=== PATIENT | male | born 1950 | race Caucasian/White ===

== ENCOUNTER 2017-11-28 08:41 | Day surgery (SDC) | payer MEDICARE ==
--- NOTE | 2017-11-25 13:29 | HP ---
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 ANTICIPATED PROCEDURE: Excision. HISTORY OF PRESENT ILLNESS: Ultrasound positive. Seen and examined. Procedure discussed in detail and wished to proceed PAST MEDICAL HISTORY: ALLERGIES: NONE. MEDICATIONS: Norvasc. PAST SURGICAL HISTORY: Skin lesions removed. SOCIAL HISTORY: Negative. FAMILY HISTORY: Negative. REVIEW OF SYSTEMS: Hypertension controlled. PHYSICAL EXAMINATION: VITAL SIGNS: Normal. CHEST: Clear. COR: Regular. ABDOMEN: No palpable organomegaly or mass. IMPRESSION: Skin cancer of the scalp. PLAN: Excision.
[~2017-11-28 08:41] MED LIST: Lactated Ringers 0 ML IV ONE; Lactated Ringers 1,000 ML IV ONE; Lactated Ringers 1,000 ML IV SCH; MINERAL OIL LIGHT 10 ML FOR SURGERY ONE; Sensorcaine 0.25% 10 ML ONE
[2017-11-28] MEDS ORDERED: VERSED 5 MG/5 ML IV ONE (08:42)
[2017-11-28] MEDS ORDERED: DEMEROL 50 MG SDV IV ONE (08:42)
[2017-11-28 09:30] VITALS: PULSE 60
[2017-11-28] MEDS ORDERED: Xopenex 1.25 MG/0.5 ML UD NEBULE IH ONE ×3 (09:39→10:10)
[2017-11-28] MEDS ORDERED: BACIGUENT 30 GM ONE (11:15)
[2017-11-28 12:46] VITALS: BP 96/55; O2SAT 94
--- NOTE | 2017-11-29 08:21 | OP ---
SURGERY DATE/TIME: 11/28/2017 1052 PREOPERATIVE DIAGNOSIS: Skin cancer probably squamous of the scalp 2 cm. POSTOPERATIVE DIAGNOSIS: Skin cancer probably squamous of the scalp 2 cm. PROCEDURES: 1) Excision with 2 cm circular skin cancer on the scalp. 2) Harvesting 4 sq/cm of split thickness skin graft. 3) Application of 4 sq/cm of split thickness skin graft. 4) Supervision of 30 minutes of monitored IV sedation. SURGEON: Patrick Zimmerman M.D. ANESTHESIA: IV sedation monitored. COMPLICATIONS: None. CONDITION: Stable. INDICATION: A patient requiring removal of a biopsy-proven squamous cell of scalp. DESCRIPTION OF PROCEDURE: Taken to surgery. Routine prep and drape. Time out performed. A circular incision was marked with 0.5 mm to 1 mm free zone. It was incised. 0.25% Marcaine IV sedation. IV sedation was monitored. Oximetry kept over 90%. Comfort level satisfactory. Hemostasis obtained with electrocautery. Split thickness skin graft 4 sq/cm was harvested from the thigh. It was then applied with sutures #4-0 Prolene. Sterile ointment applied. Sterile dressing applied. The patient tolerated the procedure satisfactorily.
== END 2017-11-28 13:05 | disposition home or self-care (01) ==
LOC: SDC 08:41
PROVIDERS: ATTEND Surgery
PROC: 0HR0X74 Replacement of Scalp Skin with Autologous Tissue Substitute, Partial Thickness, External Approach (ICD-10-PCS; principal; 2017-11-28)
PROC: 0HBHXZZ Excision of Right Upper Leg Skin, External Approach (ICD-10-PCS; 2017-11-28)
DX: C44.42 Squamous cell carcinoma of skin of scalp and neck (principal); I10 Essential (primary) hypertension; Z79.01 Long term (current) use of anticoagulants
CPT/HCPCS: 94640; J2175; J2250; A9270-GY

== ENCOUNTER 2023-12-03 12:02 | Emergency (ER) | payer MEDICARE ==
--- NOTE | 2023-12-03 12:18 | ERPHSYRPT ---
- History of Present Illness Time Seen by Provider: 12/03/23 12:18 Source: patient Exam Limitations: no limitations Physician History: Patient 73-year-old male with a history of dementia, CHF COPD [place] presents to our ED for evaluation of a sensation of being hit on the head. Patient denies any head trauma. There is no evidence of head trauma. This sensation began last night. No neck pain. Cervical spine cleared clinically. Patient denies chest pain no shortness of breath. No nausea vomiting or diaphoresis. Patient is conversant well-appearing. He has no other complaints. Portions of this note were created with voice recognition technology. There may be grammatical, spelling, punctuation or sound alike errors Timing/Duration: yesterday Severity: moderate Modifying Factors: Improves With: nothing Associated Symptoms: denies symptoms Allergies/Adverse Reactions: iodine Allergy (Intermediate, Verified 08/10/19 14:11) shellfish derived Allergy (Verified 08/10/19 14:11) Home Medications: Citalopram Hydrobromide 20 mg* [ceLEXa 20 MG] 20 mg PO DAILY 09/16/15 [History] Atorvastatin Calcium [Lipitor] 80 mg PO DAILY 06/26/16 [History] Memantine HCl [Namenda] 10 mg PO BID 06/26/16 [History] Sacubitril/Valsartan [Entresto 49 mg-51 mg Tablet] 1 each PO DAILY 06/26/16 [History] Albuterol Sulfate [Ventolin Hfa] 2 puffs IH BID PRN PRN 11/19/17 [History] Rivastigmine 9.5 mg TD DAILY 11/19/17 [History] Spironolactone 25 mg [Aldactone 25 MG] 12.5 mg PO DAILY 11/19/17 [History] Furosemide 40 mg PO TID 10/14/18 [History] carvediloL [Carvedilol] 6.25 mg PO BID 10/14/18 [History] Apixaban [Eliquis] 5 mg PO BID 12/03/23 [History] Doxycycline Hyclate 100 mg [Vibramycin 100 MG] 100 mg PO BID 12/03/23 [History] Hx Tetanus, Diphtheria Vaccination/Date Given: No Hx Influenza Vaccination/Date Given: No Hx Pneumococcal Vaccination/Date Given: No - Review of Systems Constitutional: No Symptoms, No Fever, No Chills Eyes: No Symptoms Ears, Nose, & Throat: No Symptoms Respiratory: No Symptoms, No Cough, No Dyspnea Cardiac: No Symptoms, No Chest Pain, No Edema, No Syncope Abdominal/Gastrointestinal: No Symptoms, No Abdominal Pain, No Nausea, No Vomiting, No Diarrhea Genitourinary Symptoms: No Symptoms, No Dysuria Musculoskeletal: No Symptoms, No Back Pain, No Neck Pain Skin: No Symptoms, No Rash Neurological: No Symptoms, No Dizziness, No Focal Weakness, No Sensory Changes Psychological: No Symptoms Endocrine: No Symptoms Hematologic/Lymphatic: No Symptoms Immunological/Allergic: No Symptoms All Other Systems: Reviewed and Negative - Past Medical History Pertinent Past Medical History: Yes Neurological History: Dementia, TIA ENT History: No Pertinent History Cardiac History: Congestive Heart Failure, Myocardial Infarction ([place]), Other Respiratory History: CHF, COPD Endocrine Medical History: No Pertinent History Musculoskeletal History: Osteoarthritis GI Medical History: GERD History: No Pertinent History Psycho-Social History: Depression Male Reproductive Disorders: No Pertinent History Other Medical History: MOST RECENT [place] 12/25/18 WT PACEMAKER/DE-FIB PLACEMENT. WEARING OXYGEN AT NIGHT. HX OF TIA CAUSING LEFT FACIAL DROOP. HX OF DEMENTIA WITH PATIENT REPORTING SHORT-TERM/RECENT MEMORY DIFFICULTIES. DOESN'T DRIVE ANY MORE DUE TO NOT BEING ABLE TO REMEMBER AT TIMES WHERE HE WAS GOING. ON THIS DATE PATIENT ALERT, ORIENTED X4, AND FOLLOWS COMMANDS WITHOUT DIFFICULTY. ONCE DURING SESSION PATIENT PAUSED AFTER COMMAND TO STAND AND WHEN ASKED WHAT WAS WRONG HE STARED OFF THEN SAID "I DON'T KNOW". 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 - Past Surgical History Past Surgical History: Yes Neuro Surgical History: No Pertinent History Cardiac: Cardiac Stent, Cardiac Catheterization Respiratory: No Pertinent History Gastrointestinal: Appendectomy, Hernia Repair Genitourinary: No Pertinent History Musculoskeletal: No Pertinent History Male Surgical History: No Pertinent History Other Surgical History: pt states he has dementia - Social History Smoking Status: Former smoker Exposure to second hand smoke: No Drug Use: none Patient Lives Alone: No - Nursing Vital Signs Nursing Vital Signs: Initial Vital Signs Temperature 98.4 F 12/03/23 12:02 Pulse Rate 84 12/03/23 12:02 Respiratory Rate 22 12/03/23 12:02 Blood Pressure 118/66 12/03/23 12:02 O2 Sat by Pulse Oximetry 98 02/27/24 12:02 Pain Scale Pain Intensity 4 - Physical Exam General Appearance: no apparent distress, alert Eye Exam: PERRL/EOMI, eyes nml inspection Ears, Nose, Throat Exam: normal ENT inspection, TMs normal, pharynx normal, moist mucous membranes Neck Exam: normal inspection, non-tender, supple, full range of motion Respiratory Exam: normal breath sounds, lungs clear, airway intact, No respiratory distress Cardiovascular Exam: regular rate/rhythm, normal heart sounds, normal peripheral pulses Gastrointestinal/Abdomen Exam: soft, normal bowel sounds, No tenderness, No mass Back Exam: normal inspection, normal range of motion, No CVA tenderness, No vertebral tenderness Extremity Exam: normal inspection, normal range of motion, pelvis stable Neurologic Exam: alert, oriented x 3, cooperative, normal mood/affect, nml cerebellar function, nml station & gait, sensation nml, No motor deficits Skin Exam: normal color, warm, dry, No rash Lymphatic Exam: No adenopathy SpO2 Interpretation: normal SpO2: 98 O2 Delivery: Room Air - Course Nursing assessment & vital signs reviewed: Yes EKG Interpreted by Me: RATE (79), Sinus Rhythm, NORMAL AXIS, NORMAL INTERVALS - CT Exams Head CT Interpretation: Tele-radiologist Report (Nonacute senile brain with remote right internal capsule lacunar infarct) Ordered Tests: Active Orders 24 hr Category Date Time Status Supervisor [place] STAT Care 12/03/23 12:16 Active EKG-ER Only STAT Care 12/03/23 12:13 Active IV Insertion STAT Care 12/03/23 12:13 Active Pulse Oximetry (ED) STAT Care 12/03/23 12:13 Active HEAD WITHOUT CONTRAST [CT] Stat Exams 12/03/23 12:08 Completed CBC W DIFF Stat Lab 12/03/23 12:10 Completed CMP Stat Lab 12/03/23 12:10 Completed MAG [MAGNESIUM] Stat Lab 12/03/23 15:40 Completed TROPONIN Q4H Lab 12/03/23 12:10 Completed TROPONIN Q4H Lab 12/03/23 15:40 Received TROPONIN Q4H Lab 12/03/23 20:30 Ordered UA W/RFX UR CULTURE Stat Lab 12/03/23 12:20 Completed Medication Summary Generic Name Dose Route Start Last Admin Trade Name Freq PRN Reason Stop Dose Admin Amiodarone HCl/Dextrose 360 mg in 200 mls @ 33 mls/hr 12/03/23 16:00 12/03/23 15:54 Nexterone 360 Mg/200 Ml Bag IV 01/02/24 15:59 33 mls/hr .Q6H4M ADALBERTO 33 mls/hr Administration Protocol Discontinued Medications Generic Name Dose Route Start Last Admin Trade Name Pawanq PRN Reason Stop Dose Admin Aspirin 324 mg 12/03/23 13:24 12/03/23 13:27 Aspirin 81 Mg Tab.Chew PO 12/03/23 13:25 324 mg STAT ONE Administration Aspirin Confirm 12/03/23 13:27 Aspirin 81 Mg Tab.Chew Administered 12/03/23 13:28 Dose 324 mg .ROUTE .STK-MED ONE Amiodarone HCl/Dextrose Confirm 12/03/23 15:43 Nexterone 360 Mg/200 Ml Bag Administered 12/03/23 15:44 Dose 360 mg in 200 mls @ ud IV .STK-MED ONE Amiodarone HCl 150 mg/ 103 mls @ 618 mls/hr 12/03/23 15:52 12/03/23 15:55 Dextrose IV 12/03/23 16:01 618 mls/hr STAT ONE Administration Protocol Lab/Rad Data: Laboratory Result Diagrams 12/03/23 12:10 12/03/23 12:10 Laboratory Results 12/03/23 12/03/23 12/03/23 Range/Units 15:40 12:20 12:10 WBC (4.0-10.5) x10^3/uL RBC (4.1-5.6) x10^6/uL Hgb (12.5-18.0) g/dL Hct (42-50) % MCV (78-100) fL MCH (26-32) pg MCHC (32-36) g/dL RDW (11.5-14.0) % Plt Count (150-450) x10^3/uL MPV (7.5-11.0) fL Gran % (36.0-66.0) % Immature Gran % (Auto) (0.00-0.4) % Nucleat RBC Rel Count (0.00-0.1) % Eos # (Auto) (0-0.5) x10^3/uL Immature Gran # (Auto) (0.00-0.03) x10^3u/L Absolute Lymphs (auto) (1.0-4.6) x10^3/uL Absolute Monos (auto) (0.0-1.3) x10^3/uL Absolute Nucleated RBC (0.00-0.01) x10^3u/L Lymphocytes % (24.0-44.0) % Monocytes % (0.0-12.0) % Eosinophils % (0.00-5.0) % Basophils % (0.0-0.4) % Absolute Granulocytes (1.4-6.9) x10^3/uL Basophils # (0-0.4) x10^3/uL Sodium (137-145) mmol/L Potassium (3.5-5.1) mmol/L Chloride (98-107) mmol/L Carbon Dioxide (22-30) mmol/L Anion Gap (5-15) MEQ/L BUN (9-20) mg/dL Creatinine (0.66-1.25) mg/dL Estimated GFR ML/MIN Glucose (74-106) mg/dL Calcium (8.4-10.2) mg/dL Magnesium 2.2 (1.6-2.3) mg/dL Total Bilirubin (0.2-1.3) mg/dL AST (17-59) U/L ALT (0-50) U/L Alkaline Phosphatase (38-126) U/L Troponin I 0.721 H* (0.000-0.034) ng/mL Serum Total Protein (6.3-8.2) g/dL Albumin (3.5-5.0) g/dL Urine Color Dark Yellow (Yellow) Urine Appearance Clear (Clear) Urine pH 5.5 (4.6-8.0) Ur Specific [place] 1.025 (1.005-1.030) Urine Protein Negative (Negative) Urine Glucose (UA) Negative (Negative) mg/dL Urine Ketones Negative (Negative) Urine Blood Negative (Negative) Urine Nitrite Negative (Negative) Urine Bilirubin Small A (Negative) Urine Urobilinogen 1.0 A (0.2) mg/dL Ur Leukocyte Esterase Negative (Negative) U Hyaline Cast (Auto) None Seen (0-2) /LPF Urine Microscopic RBC 0-2 (0-5) /HPF Urine Microscopic WBC 0-2 (0-5) /HPF Ur Epithelial Cells Rare (None Seen) /HPF Urine Bacteria Rare A (None Seen) /HPF Urine Culture Reflexed NO (NO) 12/03/23 12/03/23 Range/Units 12:10 12:10 WBC 7.7 (4.0-10.5) x10^3/uL RBC 5.08 (4.1-5.6) x10^6/uL Hgb 16.5 (12.5-18.0) g/dL Hct 49.2 (42-50) % MCV 96.9 (78-100) fL MCH 32.5 H (26-32) pg MCHC 33.5 (32-36) g/dL RDW 12.3 (11.5-14.0) % Plt Count 261 (150-450) x10^3/uL MPV 10.1 (7.5-11.0) fL Gran % 67.9 H (36.0-66.0) % Immature Gran % (Auto) 0.5 H (0.00-0.4) % Nucleat RBC Rel Count 0.0 (0.00-0.1) % Eos # (Auto) 0.14 (0-0.5) x10^3/uL Immature Gran # (Auto) 0.04 H (0.00-0.03) x10^3u/L Absolute Lymphs (auto) 1.78 (1.0-4.6) x10^3/uL Absolute Monos (auto) 0.46 (0.0-1.3) x10^3/uL Absolute Nucleated RBC 0.00 (0.00-0.01) x10^3u/L Lymphocytes % 23.3 L (24.0-44.0) % Monocytes % 6.0 (0.0-12.0) % Eosinophils % 1.8 (0.00-5.0) % Basophils % 0.5 (0.0-0.4) % Absolute Granulocytes 5.19 (1.4-6.9) x10^3/uL Basophils # 0.04 (0-0.4) x10^3/uL Sodium 138 (137-145) mmol/L Potassium 3.7 (3.5-5.1) mmol/L Chloride 103 (98-107) mmol/L Carbon Dioxide 27 (22-30) mmol/L Anion Gap 12.3 (5-15) MEQ/L BUN 33 H (9-20) mg/dL Creatinine 0.88 (0.66-1.25) mg/dL Estimated GFR 91.4 ML/MIN Glucose 201 H (74-106) mg/dL Calcium 8.6 (8.4-10.2) mg/dL Magnesium (1.6-2.3) mg/dL Total Bilirubin 1.20 (0.2-1.3) mg/dL AST 26 (17-59) U/L ALT 32 (0-50) U/L Alkaline Phosphatase 80 (38-126) U/L Troponin I (0.000-0.034) ng/mL Serum Total Protein 6.8 (6.3-8.2) g/dL Albumin 3.8 (3.5-5.0) g/dL Urine Color (Yellow) Urine Appearance (Clear) Urine pH (4.6-8.0) Ur Specific [place] (1.005-1.030) Urine Protein (Negative) Urine Glucose (UA) (Negative) mg/dL Urine Ketones (Negative) Urine Blood (Negative) Urine Nitrite (Negative) Urine Bilirubin (Negative) Urine Urobilinogen (0.2) mg/dL Ur Leukocyte Esterase (Negative) U Hyaline Cast (Auto) (0-2) /LPF Urine Microscopic RBC (0-5) /HPF Urine Microscopic WBC (0-5) /HPF Ur Epithelial Cells (None Seen) /HPF Urine Bacteria (None Seen) /HPF Urine Culture Reflexed (NO) - Progress Progress: improved Progress Note: Vancomycin infusing however it appears a volume has infiltrated patient's left upper extremity. Infusion discontinued. We contacted pharmacy who advised Hylenex ministration of 1 mL. We administered 0.2 mL subcutaneously at 5 different locations near the site of infiltration. Patient tolerated procedure well. Patient is involved extremities neurovascular intact distally compartment s are soft cap refill less than 2 seconds. Patient's left upper extremity is elevated. It appears the swelling is subsiding. Patient's pain is improving. He voices no complaints at this time. 12/03/23 14:00 Patient accepted by at 2:50 PM. We are awaiting call from hospitalist from hospital 12/03/23 14:50 Spoke to hospitalist at 2:54 PM. Hospitalist accepts transfer to [facility]. 12/03/23 14:55 We observed a run of V. tach at 3:16 PM. At that moment patient complained of head pain. The same head pain that brought him to our hospital today. 12/03/23 15:17 73-year-old male presents to our ED for evaluation of headache. Patient observed to be in and out of V. tach. Amiodarone initiated. Troponin elevated at 0.7 patient accepted to [facility]. Patient agrees to transfer to [facility] for further evaluation and treatment. Complexity problem addressed is moderate acute complicated Patient developed V. tach in our ED. Amiodarone initiated. Critical care time is 1 hour. Immediate action required to prevent further deterioration. Complex of data reviewed and analyzed is extensive. Test ordered test reviewed for results analyzed and correlated clinically with history physical examination. Management discussed with software build engineer and hospitalist. See above for details Risk complication and a risk morbidity/mortality patient management is high. Patient requires hospitalization/higher level of care for further evaluation and treatment. Vital stable. Time spent to transfer patient is approximately 30 minutes. Plan of care established for shared decision making. No social determinants of health present impede follow-up. Portions of this note were created with voice recognition technology. There may be grammatical, spelling, punctuation or sound alike errors 12/03/23 16:23 Counseled pt/family regarding: lab results, diagnosis - Departure Departure Disposition: Home Clinical Impression: NSTEMI (non-ST elevated myocardial infarction), V-tach, ACS (acute coronary syndrome) Condition: Stable Critical Care Time: Yes Critical Care Time(excluding separately billable procedures): Critical 30-74 mins Referrals: ISAI NORMAN DO [Primary Care Provider] - Follow up/PCP as directed
[2023-12-03 12:23] LABS: Absolute Neutrophil Ct (ANC) 5.19 x10^3/uL (1.4-6.9); BASOPHIL % 0.5 % (0.0-0.4); Basophil (Absolute #) 0.04 x10^3/uL (0-0.4); Eosinophil % 1.8 % (0.00-5.0); Eosinophil (Absolute #) 0.14 x10^3/uL (0-0.5); Hematocrit 49.2 % (42-50); Hemoglobin 16.5 g/dL (12.5-18.0); IMMATURE GRAN # 0.04 x10^3u/L (0.00-0.03); IMMATURE GRAN % 0.5 % (0.00-0.4); Lymphocyte (Absolute #) 1.78 x10^3/uL (1.0-4.6); Lymphocytes % 23.3 % (24.0-44.0); Mean Cell Volume 96.9 fL (78-100); Mean Corpuscular Hemoglobin 32.5 pg (26-32); Mean Corpuscular Hgb Concent. 33.5 g/dL (32-36); Mean Platelet Volume 10.1 fL (7.5-11.0); Monocyte (Absolute #) 0.46 x10^3/uL (0.0-1.3); Neutrophil % 67.9 % (36.0-66.0); Platelet Count 261 x10^3/uL (150-450); Red Blood Count 5.08 x10^6/uL (4.1-5.6); Red Cell Distribution Width 12.3 % (11.5-14.0); White Blood Count 7.7 x10^3/uL (4.0-10.5)
[2023-12-03 12:36] VITALS: TEMP 98.4
[2023-12-03 12:39] LABS: ALBUMIN 3.8 g/dL (3.5-5.0); ANION GAP 12.3 MEQ/L (5-15); BILIRUBIN,TOTAL 1.2 mg/dL (0.2-1.3); Calcium 8.6 mg/dL (8.4-10.2); Creatinine 1 0.88 mg/dL (0.66-1.25); EST GLOMERULAR FILTRATION RATE 91.4 ML/MIN; Potassium 3.7 mmol/L (3.5-5.1); Total Protein 6.8 g/dL (6.3-8.2)
--- NOTE | 2023-12-03 12:39 | XRAY ---
Indication: Headache. Intracranial hemorrhage. Multiple contiguous axial images obtained through the head without contrast. Comparison: None Age-appropriate global atrophy, moderate periventricular degenerative micro-ischemia bilaterally, and remote lacunar infarct right internal capsule. No acute intracranial hemorrhage, abnormal extra-axial fluid collection, mass effect or fourth ventricle is midline without hydrocephalus. Bony calvarium intact. Visualized paranasal sinuses and mastoid air cells are clear. Impression: Nonacute senile brain with remote lacunar infarct right internal capsule.
[2023-12-03 13:06] LABS: Appearance Clear (Clear); Bilirubin Small (Negative); Blood Negative (Negative); Glucose, Urine Negative (Negative); Ketones Negative (Negative); Leukocyte Esterase Negative (Negative); Nitrite Negative (Negative); Ph 5.5 (4.6-8.0); Protein,Urine Dip Negative (Negative); RBC 0-2 /HPF (0-5); Specific Gravity 1.025 (1.005-1.030); WBC 0-2 /HPF (0-5)
[2023-12-03 13:07] LABS: ADD URINE CULTURE? NO (NO); Bacteria Rare /HPF (None Seen); Epithelial Cells Rare /HPF (None Seen); Hyaline Casts None Seen /LPF (0-2)
[2023-12-03] MEDS: BABY ASPIRIN 81 MG CHEW PO ONE (13:27)
[2023-12-03] MEDS ORDERED: BABY ASPIRIN 81 MG CHEW ONE (13:27)
[2023-12-03 15:04] VITALS: BP 98/61
[2023-12-03] MEDS ORDERED: NEXTERONE 360 MG/200 ML BAG 360 MG/200 ML PLAST..BAG IV ONE (15:43)
[2023-12-03] MEDS: NEXTERONE 360 MG/200 ML BAG 360 MG/200 ML PLAST..BAG IV SCH (15:54)
[2023-12-03] MEDS: Cordarone 150 MG/3 ML Injection*** 150 MG in D5w 100ML Mini Bag 100 ML 100 ML IV ONE (15:55)
[2023-12-03 16:07] VITALS: PULSE 60; RESP 16
[2023-12-03 16:26] VITALS: O2SAT 98
== END 2023-12-03 16:44 | disposition short-term general hospital (02) ==
LOC: ED 12:02
DX: I21.4 Non-ST elevation (NSTEMI) myocardial infarction (principal); I24.9 Acute ischemic heart disease, unspecified; I47.20 Ventricular tachycardia, unspecified; R51.9 Headache, unspecified; I50.9 Heart failure, unspecified; Z79.01 Long term (current) use of anticoagulants; Z79.899 Other long term (current) drug therapy
CPT/HCPCS: 36000; 36415; 70450; 80053; 81001; 83735; 84484; 85025; 93005; 93041; 94760; 99285; 99291; J0282; A9270-GY

== ENCOUNTER 2024-02-10 23:49 | Emergency (ER) | payer MEDICARE ==
[~2024-02-10 23:49] MED LIST changes: -Lactated Ringers 0 ML IV ONE; -Lactated Ringers 1,000 ML IV ONE; -Lactated Ringers 1,000 ML IV SCH; -MINERAL OIL LIGHT 10 ML FOR SURGERY ONE; +NOREPINEPHRINE 8 MG/250 ML-D5W 8 MG/250 ML PLAST..BAG IV ONE; -Sensorcaine 0.25% 10 ML ONE
[2024-02-10] MEDS ORDERED: Zemuron 100 MG/10 ML IV ONE (23:50)
[2024-02-10] MEDS ORDERED: Cordarone 150 MG/3 ML Injection IV ONE ×2 (23:50)
[2024-02-10] MEDS ORDERED: SODIUM BICARBONATE 50 MEQ/50 ML ABBOJECT IV ONE (23:50)
[2024-02-10] MEDS ORDERED: VERSED 5 MG/5 ML IV ONE (23:50)
[2024-02-10] MEDS ORDERED: Versed 50 MG/ 10 Ml MDV*** 50 MG in Sodium Chloride 0.9% 250 ML 250 ML IV ONE (23:50)
[2024-02-10] MEDS ORDERED: EPINEPHRINE ABBOJECT 1 MG/10 ML IV ONE (23:50)
[2024-02-10] MEDS ORDERED: NARCAN 2 MG/2 ML IV ONE (23:50)
[2024-02-10] MEDS ORDERED: Sodium Chloride 0.9% 250 ML 250 ML IV ONE (23:52)
[2024-02-10] MEDS ORDERED: Versed 50 MG/ 10 Ml MDV ONE (23:52)
--- NOTE | 2024-02-10 23:57 | ERPHSYRPT ---
- History of Present Illness Source: family, old records Exam Limitations: clinical condition Timing/Duration: today Activities at Onset: none Chest Pain Radiation: no radiation Severity of Pain-Max: none Severity of Pain-Current: none Modifying Factors: Improves With: nothing Nitro Today/Relief: no nitro taken today Aspirin Treatment Today: no aspirin today Associated Symptoms: other (Patient unresponsive) Hx Tetanus, Diphtheria Vaccination/Date Given: No Hx Influenza Vaccination/Date Given: No Hx Pneumococcal Vaccination/Date Given: No <LUIS M DE LA CRUZ - Last Filed: 02/11/24 06:48> <MANINDER KOHLI - Last Filed: 02/11/24 14:05> - History of Present Illness Time Seen by Provider: 02/10/24 23:50 Physician History: This is a 73-year-old white male patient who was brought to the emergency department in respiratory distress by his brother. Patient was having difficulty breathing at home, walks slowly to the car and in the car, and route to the emergency department the patient collapsed and was not responsive. In [facility] emergency department room he had agonal breathing. Patient was pulseless. Immediately, the patient was placed on the monitor which showed the patient was in PEA. We began compressions and then applied the Kapil device. Patient was rapidly orotracheally intubated by respiratory therapy under my direction. Additional, independent history was provided by the patient's brother because the patient was unresponsive. Patient has multiple medical issues including CHF, dementia, oxygen dependent COPD, coronary artery disease with cardiac stents and pacemaker/defibrillator in place. Patient's brother stated that the defibrillator is nonfunctional because of some problems with wiring. Patient has a history of hyperlipidemia, hypertension, TIA and gastroesophageal reflux disease. He is taking Eliquis. I reviewed [facility] records (LUIS M DE LA CRUZ) Allergies/Adverse Reactions: iodine Allergy (Severe, Verified 02/11/24 00:20) Anaphylactic Reaction shellfish derived Allergy (Severe, Verified 02/11/24 00:20) Anaphylactic Reaction Home Medications: Citalopram Hydrobromide 20 mg* [ceLEXa 20 MG] 20 mg PO DAILY 09/16/15 [History] Atorvastatin Calcium [Lipitor] 80 mg PO DAILY 06/26/16 [History] Memantine HCl [Namenda] 10 mg PO BID 06/26/16 [History] Sacubitril/Valsartan [Entresto 49 mg-51 mg Tablet] 1 each PO DAILY 06/26/16 [History] Albuterol Sulfate [Ventolin Hfa] 2 puffs IH BID PRN PRN 11/19/17 [History] Rivastigmine 9.5 mg TD DAILY 11/19/17 [History] Spironolactone 25 mg [Aldactone 25 MG] 12.5 mg PO DAILY 11/19/17 [History] Furosemide 40 mg PO TID 10/14/18 [History] carvediloL [Carvedilol] 6.25 mg PO BID 10/14/18 [History] Apixaban [Eliquis] 5 mg PO BID 12/03/23 [History] Doxycycline Hyclate 100 mg [Vibramycin 100 MG] 100 mg PO BID 12/03/23 [History] Travel Risk - International Travel Have you traveled outside of the country in past 3 weeks: No - Emerging Infectious Disease Are you exhibiting symptoms associated with any current EIDs: No <LUIS M DE LA CRUZ - Last Filed: 02/11/24 06:48> - Review of Systems Constitutional: Other (Patient unresponsive) Eyes: Other (Patient unresponsive) Ears, Nose, & Throat: Other (Patient unresponsive) Respiratory: Dyspnea, Other (Patient with agonal breathing shortness of breath symptoms) Cardiac: Other (No palpable pulse) Abdominal/Gastrointestinal: No Symptoms Genitourinary Symptoms: No Symptoms Musculoskeletal: No Symptoms Skin: No Symptoms Neurological: No Symptoms Psychological: No Symptoms Endocrine: No Symptoms Hematologic/Lymphatic: No Symptoms Immunological/Allergic: No Symptoms All Other Systems: Reviewed and Negative <LUIS M DE LA CRUZ - Last Filed: 02/11/24 06:48> - Past Medical History Pertinent Past Medical History: Yes Neurological History: Dementia, TIA ENT History: No Pertinent History Cardiac History: Congestive Heart Failure, Myocardial Infarction ([place]), Other Respiratory History: CHF, COPD Endocrine Medical History: No Pertinent History Musculoskeletal History: Osteoarthritis GI Medical History: GERD History: No Pertinent History Psycho-Social History: Depression Male Reproductive Disorders: No Pertinent History Other Medical History: MOST RECENT NE 12/25/18 WT PACEMAKER/DE-FIB PLACEMENT. WEARING OXYGEN AT NIGHT. HX OF TIA CAUSING LEFT FACIAL DROOP. HX OF DEMENTIA WITH PATIENT REPORTING SHORT-TERM/RECENT MEMORY DIFFICULTIES. DOESN'T DRIVE ANY MORE DUE TO NOT BEING ABLE TO REMEMBER AT TIMES WHERE HE WAS GOING. ON THIS DATE PATIENT ALERT, ORIENTED X4, AND FOLLOWS COMMANDS WITHOUT DIFFICULTY. ONCE DURING SESSION PATIENT PAUSED AFTER COMMAND TO STAND AND WHEN ASKED WHAT WAS WRONG HE STARED OFF THEN SAID "I DON'T KNOW". 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 - Past Surgical History Past Surgical History: Yes Neuro Surgical History: No Pertinent History Cardiac: Cardiac Stent, Cardiac Catheterization Respiratory: No Pertinent History Gastrointestinal: Appendectomy, Hernia Repair Genitourinary: No Pertinent History Musculoskeletal: No Pertinent History Male Surgical History: No Pertinent History Other Surgical History: pt states he has dementia - Social History Smoking Status: Former smoker Exposure to second hand smoke: No Drug Use: none Patient Lives Alone: No <LUIS M DE LA CRUZ - Last Filed: 02/11/24 06:48> - Physical Exam General Appearance: severe distress, lethargy, other (Unresponsive) Eye Exam: eyes nml inspection Ears, Nose, Throat Exam: dry mucous membranes Neck Exam: normal inspection, non-tender, full range of motion Respiratory Exam: respiratory distress, diminished breath sounds, No chest tenderness Cardiovascular Exam: other (No palpable pulse) Gastrointestinal/Abdomen Exam: soft, normal bowel sounds, No tenderness Rectal Exam: not done Back Exam: normal inspection, No CVA tenderness Extremity Exam: normal inspection, normal range of motion, pelvis stable Neurologic Exam: other (Patient unresponsive) Skin Exam: pale, other (Cool skin) Lymphatic Exam: No adenopathy SpO2 Interpretation: hypoxic, ABG ordered, O2 applied, airway management i nt. <LUIS M DE LA CRUZ - Last Filed: 02/11/24 06:48> - Nursing Vital Signs Nursing Vital Signs: Initial Vital Signs Temperature 93.1 F 02/10/24 23:49 Pulse Rate 66 02/10/24 23:49 Blood Pressure 86/52 02/10/24 23:49 Pain Scale Pain Intensity 0 - Course Nursing assessment & vital signs reviewed: Yes EKG Interpreted by Me: RATE (60), Other (Nondiagnostic twelve-lead EKG. Magnet in place to turn off the pacemaker.) <LUIS M DE LA CRUZ - Last Filed: 02/11/24 06:48> - CT Exams Head CT Interpretation: Tele-radiologist Report (Grossly stable nonacute senile brain with remote lacunar infarct) <MANINDER KOHLI - Last Filed: 02/11/24 14:05> Ordered Tests: Active Orders 24 hr Category Date Time Status CHEST 1 VIEW (PORTABLE) Stat Exams 02/11/24 00:11 Completed HEAD WITHOUT CONTRAST [CT] Stat Exams 02/11/24 11:57 Completed ABG [ARTERIAL BLOOD GASES] ASORD Lab 02/10/24 23:35 Results ABG [ARTERIAL BLOOD GASES] Stat Lab 02/11/24 01:26 Results ABG [ARTERIAL BLOOD GASES] Stat Lab 02/11/24 10:45 Completed CBC W DIFF Stat Lab 02/10/24 23:45 Completed CBC W DIFF Stat Lab 02/11/24 05:20 Completed CMP Stat Lab 02/10/24 23:45 Completed CMP Stat Lab 02/11/24 05:20 Completed CULTURE,URINE Stat Lab 02/11/24 00:01 Received D-DIMER QUANTITATIVE Stat Lab 02/10/24 23:45 Completed MAGNESIUM Stat Lab 02/10/24 23:45 Completed MAGNESIUM Stat Lab 02/11/24 05:20 Completed Manual Differential NC Stat Lab 02/10/24 23:45 Completed PROTIME WITH INR Stat Lab 02/10/24 23:45 Completed PTT Stat Lab 02/10/24 23:45 Completed TROPONIN Q4H Lab 02/11/24 05:20 Completed TROPONIN Q4H Lab 02/11/24 09:20 Completed TROPONIN Q4H Lab 02/11/24 14:30 Ordered TROPONIN Q4H Lab 02/11/24 18:30 Ordered TROPONIN Q4H Lab 02/11/24 22:30 Ordered TROPONIN Stat Lab 02/10/24 23:45 Completed Intubate Patient STAT RT 02/10/24 23:20 Completed Ventilator Management Q4H RT 02/11/24 01:44 Active Medication Summary Generic Name Dose Route Start Last Admin Trade Name Freq PRN Reason Stop Dose Admin Sodium Chloride 1,000 mls @ 100 mls/hr 02/11/24 05:15 02/11/24 06:53 Sodium Chloride 0.9% 1000 Ml IV 03/12/24 05:14 100 mls/hr .Q10H ADALBERTO Administration Propofol 100 mls @ 2.457 mls/hr 02/11/24 09:20 05/07/24 10:02 Propofol 1000 Mg/100 Ml Bottle IV 03/12/24 09:19 5 mcg/kg/min .Q24H PRN 2.457 mls/hr SEDATION FOR VENT Titration Protocol 5 MCG/KG/MIN Discontinued Medications Generic Name Dose Route Start Last Admin Trade Name Freq PRN Reason Stop Dose Admin Amiodarone HCl 300 mg 02/10/24 23:50 Amiodarone Hcl 150 Mg/3 Ml Vial IV 02/10/24 23:51 .STK-MED ONE Amiodarone HCl 150 mg 02/10/24 23:50 Amiodarone Hcl 150 Mg/3 Ml Vial IV 02/10/24 23:51 .STK-MED ONE Epinephrine HCl 1 mg 02/10/24 23:50 Epinephrine 1 Mg/10 Ml Abbj 0.1 Mg/Ml Syr IV 02/10/24 23:51 .STK-MED ONE Furosemide 40 mg 02/11/24 06:23 02/11/24 06:42 Furosemide 40 Mg/4 Ml Vial IV 02/11/24 06:24 40 mg STAT ONE Administration Furosemide Confirm 02/11/24 06:37 Furosemide 40 Mg/4 Ml Vial Administered 02/11/24 06:38 Dose 40 mg .ROUTE .STK-MED ONE Heparin Sodium (Beef Lung) 5,000 unit 02/11/24 00:22 02/11/24 00:27 Heparin 5000 Units/0.5 Ml 5,000 Unit/0.5 Ml Syr IV 02/11/24 00:23 5,000 unit STAT ONE Administration Heparin Sodium (Beef Lung) Confirm 02/11/24 00:23 Heparin 5000 Units/0.5 Ml 5,000 Unit/0.5 Ml Syr Administered 02/11/24 00:24 Dose 5,000 unit .ROUTE .STK-MED ONE Hydromorphone HCl 1 mg 02/11/24 09:33 02/11/24 09:54 Hydromorphone 1 Mg/1ml Inj IV 02/11/24 09:34 1 mg STAT ONE Administration Hydromorphone HCl Confirm 02/11/24 09:49 Hydromorphone 1 Mg/1ml Inj Administered 02/11/24 09:50 Dose 1 mg .ROUTE .STK-MED ONE Hydromorphone HCl 1 mg 02/11/24 12:09 02/11/24 12:15 Hydromorphone 1 Mg/1ml Inj IV 02/11/24 12:10 1 mg STAT ONE Administration Hydromorphone HCl Confirm 02/11/24 12:10 Hydromorphone 1 Mg/1ml Inj Administered 02/11/24 12:11 Dose 1 mg .ROUTE .STK-MED ONE Sodium Chloride Confirm 02/11/24 01:01 Sodium Chloride 0.9% Administered 02/11/24 01:02 Dose 100 mls @ ud .ROUTE .STK-MED ONE Ceftriaxone Sodium 1 gm in 100 mls @ 200 mls/hr 02/11/24 06:22 02/11/24 07:44 Rocephin 1 Gm / 100 Ml Nacl IV 02/11/24 06:51 Infused STAT ONE Infusion Ceftriaxone Sodium Confirm 02/11/24 06:37 Rocephin 1 Gm / 100 Ml Nacl Administered 02/11/24 06:38 Dose 1 gm in 100 mls @ ud IV .STK-MED ONE Sodium Chloride Confirm 02/10/24 23:52 Sodium Chloride 0.9% 250 Ml Administered 02/10/24 23:53 Dose 250 mls @ ud IV .STK-MED ONE Norepinephrine/Dextrose Confirm 02/10/24 23:45 Norepinephrine 8 Mg/250 Ml-D5w Administered 02/10/24 23:46 Dose 8 mg in 250 mls @ ud IV .STK-MED ONE Propofol Confirm 02/11/24 09:12 Propofol 1000 Mg/100 Ml Bottle Administered 02/11/24 09:13 Dose 100 mls @ ud IV .STK-MED ONE Magnesium Sulfate Confirm 02/11/24 01:01 Magnesium Sulfate Injection Administered 02/11/24 01:02 Dose 2 gm .ROUTE .STK-MED ONE Midazolam HCl Confirm 02/10/24 23:52 Midazolam Hcl 50 Mg/10 Ml Vial Administered 02/10/24 23:53 Dose 50 mg .ROUTE .STK-MED ONE Naloxone HCl 2 mg 02/10/24 23:50 Naloxone Hcl 2mg/2 Ml 2 Mg/2 Ml Syr IV 02/10/24 23:51 .STK-MED ONE Propofol 10 mg 02/11/24 09:32 02/11/24 09:37 Propofol 10 Mg/Ml 20ml Vial IV 02/11/24 09:33 10 mg STAT ONE Administration Rocuronium [place] 50 mg 02/10/24 23:50 Rocuronium [place] 100 Mg/10ml Vial IV 02/10/24 23:51 .STK-MED ONE Sodium Bicarbonate 50 meq 02/10/24 23:50 Sodium Bicarbonate 1 Meq/Ml 50ml Syringe IV 02/10/24 23:51 .STK-MED ONE Lab/Rad Data: Laboratory Result Diagrams 02/11/24 05:20 02/11/24 05:20 Laboratory Results 02/11/24 02/11/24 02/11/24 Range/Units 10:45 09:20 05:20 WBC (4.0-10.5) x10^3/uL RBC (4.1-5.6) x10^6/uL Hgb (12.5-18.0) g/dL Hct (42-50) % MCV (78-100) fL MCH (26-32) pg MCHC (32-36) g/dL RDW (11.5-14.0) % Plt Count (150-450) x10^3/uL MPV (7.5-11.0) fL Gran % (36.0-66.0) % Immature Gran % (Auto) (0.00-0.4) % Nucleat RBC Rel Count (0.00-0.1) % Eos # (Auto) (0-0.5) x10^3/uL Immature Gran # (Auto) (0.00-0.03) x10^3u/L Absolute Lymphs (auto) (1.0-4.6) x10^3/uL Absolute Monos (auto) (0.0-1.3) x10^3/uL Absolute Nucleated RBC (0.00-0.01) x10^3u/L Lymphocytes % (24.0-44.0) % Monocytes % (0.0-12.0) % Eosinophils % (0.00-5.0) % Basophils % (0.0-0.4) % Absolute Granulocytes (1.4-6.9) x10^3/uL Segmented Neutrophils (36.-66.) % Lymphocytes (Manual) (24-44) % Monocytes (Manual) (0.0-12.0) % Basophils # (0-0.4) x10^3/uL Platelet Estimate (NORMAL) RBC Morphology PT (9.4-12.5) SECONDS INR (0.8-3.0) APTT (25.1-36.5) SECONDS D-Dimer (0.0-0.50) mg/L Puncture Site RIGHT RADIAL pCO2 37 (35-45) mmHg pO2 294 H* (75-100) mmHg Base Excess 6.2 H (-2.0-2.0) O2 Saturation 97.5 (94-100) g/dF ABG pH 7.51 H (7.35-7.45) ABG HCO3 29.5 H* (22-28) ABG O2 Sat (Measured) 100.0 (95-100) % Joel Test YES A-a Gradient 373 a/A Ratio 0.44 Hemoglobin 13.8 Carboxyhemoglobin 1.1 (0.0-6.9) % THgb Methemoglobin 1.4 (1.4-1.5) % Potassium 3.9 (3.5-5.1) Temperature 37.0 C POC O2 Flow Rate 100 % Sodium (135-145) mmol/L Chloride (98-107) mmol/L Carbon Dioxide (22-30) mmol/L Anion Gap (5-15) MEQ/L BUN (9-20) mg/dL Creatinine (0.66-1.25) mg/dL Estimated GFR ML/MIN Glucose (74-106) mg/dL Calcium (8.4-10.2) mg/dL Magnesium (1.6-2.3) mg/dL Total Bilirubin (0.2-1.3) mg/dL AST (17-59) U/L ALT (0-50) U/L Alkaline Phosphatase (38-126) U/L Troponin I 1.740 H* 1.450 H* (0.000-0.033) ng/mL Serum Total Protein (6.3-8.2) g/dL Albumin (3.5-5.0) g/dL Urine Color (Yellow) Urine Appearance (Clear) Urine pH (4.6-8.0) Ur Specific [place] (1.005-1.030) Urine Protein (Negative) Urine Glucose (UA) (Negative) mg/dL Urine Ketones (Negative) Urine Blood (Negative) Urine Nitrite (Negative) Urine Bilirubin (Negative) Urine Urobilinogen (0.2) mg/dL Ur Leukocyte Esterase (Negative) Urine Microscopic RBC (0-5) /HPF Urine Microscopic WBC (0-5) /HPF Ur Epithelial Cells (None Seen) /HPF Urine Bacteria (None Seen) /HPF Slides for Path Review 02/11/24 02/11/24 02/11/24 Range/Units 05:20 05:20 01:26 WBC 15.1 H (4.0-10.5) x10^3/uL RBC 4.12 (4.1-5.6) x10^6/uL Hgb 13.9 (12.5-18.0) g/dL Hct 41.5 L (42-50) % MCV 100.7 H D (78-100) fL MCH 33.7 H (26-32) pg MCHC 33.5 (32-36) g/dL RDW 13.7 (11.5-14.0) % Plt Count 211 (150-450) x10^3/uL MPV 10.3 (7.5-11.0) fL Gran % 88.6 H (36.0-66.0) % Immature Gran % (Auto) 0.7 H (0.00-0.4) % Nucleat RBC Rel Count 0.0 (0.00-0.1) % Eos # (Auto) 0.01 (0-0.5) x10^3/uL Immature Gran # (Auto) 0.11 H (0.00-0.03) x10^3u/L Absolute Lymphs (auto) 0.46 L (1.0-4.6) x10^3/uL Absolute Monos (auto) 1.12 (0.0-1.3) x10^3/uL Absolute Nucleated RBC 0.00 (0.00-0.01) x10^3u/L Lymphocytes % 3.1 L (24.0-44.0) % Monocytes % 7.4 (0.0-12.0) % Eosinophils % 0.1 (0.00-5.0) % Basophils % 0.1 (0.0-0.4) % Absolute Granulocytes 13.35 H (1.4-6.9) x10^3/uL Segmented Neutrophils (36.-66.) % Lymphocytes (Manual) (24-44) % Monocytes (Manual) (0.0-12.0) % Basophils # 0.02 (0-0.4) x10^3/uL Platelet Estimate (NORMAL) RBC Morphology PT (9.4-12.5) SECONDS INR (0.8-3.0) APTT (25.1-36.5) SECONDS D-Dimer (0.0-0.50) mg/L Puncture Site Pending pCO2 53 H (35-45) mmHg pO2 152 H* (75-100) mmHg Base Excess -3.3 L (-2.0-2.0) O2 Saturation 97.4 (94-100) g/dF ABG pH 7.27 L (7.35-7.45) ABG HCO3 24.3 (22-28) ABG O2 Sat (Measured) 99.9 (95-100) % Joel Test Pending A-a Gradient 495 a/A Ratio 0.23 Hemoglobin 14.1 Carboxyhemoglobin 1.3 (0.0-6.9) % THgb Methemoglobin 1.2 L (1.4-1.5) % Potassium 3.6 3.6 (3.5-5.1) Temperature 37.0 C POC O2 Flow Rate 100 % Sodium 143 (135-145) mmol/L Chloride 108 H (98-107) mmol/L Carbon Dioxide 27 (22-30) mmol/L Anion Gap 10.6 (5-15) MEQ/L BUN 21 H (9-20) mg/dL Creatinine 1.12 (0.66-1.25) mg/dL Estimated GFR 69.8 ML/MIN Glucose 166 H (74-106) mg/dL Calcium 8.5 (8.4-10.2) mg/dL Magnesium 2.7 H (1.6-2.3) mg/dL Total Bilirubin 1.20 (0.2-1.3) mg/dL AST 80 H (17-59) U/L ALT 45 (0-50) U/L Alkaline Phosphatase 87 (38-126) U/L Troponin I (0.000-0.033) ng/mL Serum Total Protein 6.3 (6.3-8.2) g/dL Albumin 3.5 (3.5-5.0) g/dL Urine Color (Yellow) Urine Appearance (Clear) Urine pH (4.6-8.0) Ur Specific [place] (1.005-1.030) Urine Protein (Negative) Urine Glucose (UA) (Negative) mg/dL Urine Ketones (Negative) Urine Blood (Negative) Urine Nitrite (Negative) Urine Bilirubin (Negative) Urine Urobilinogen (0.2) mg/dL Ur Leukocyte Esterase (Negative) Urine Microscopic RBC (0-5) /HPF Urine Microscopic WBC (0-5) /HPF Ur Epithelial Cells (None Seen) /HPF Urine Bacteria (None Seen) /HPF Slides for Path Review YES 02/10/24 02/10/24 02/10/24 Range/Units 23:45 23:45 23:45 WBC 11.8 H (4.0-10.5) x10^3/uL RBC 4.13 (4.1-5.6) x10^6/uL Hgb 13.7 (12.5-18.0) g/dL Hct 45.0 (42-50) % MCV 109.0 H (78-100) fL MCH 33.2 H (26-32) pg MCHC 30.4 L (32-36) g/dL RDW 13.6 (11.5-14.0) % Plt Count 241 (150-450) x10^3/uL MPV 10.7 (7.5-11.0) fL Gran % (36.0-66.0) % Immature Gran % (Auto) (0.00-0.4) % Nucleat RBC Rel Count (0.00-0.1) % Eos # (Auto) (0-0.5) x10^3/uL Immature Gran # (Auto) (0.00-0.03) x10^3u/L Absolute Lymphs (auto) (1.0-4.6) x10^3/uL Absolute Monos (auto) (0.0-1.3) x10^3/uL Absolute Nucleated RBC (0.00-0.01) x10^3u/L Lymphocytes % (24.0-44.0) % Monocytes % (0.0-12.0) % Eosinophils % (0.00-5.0) % Basophils % (0.0-0.4) % Absolute Granulocytes (1.4-6.9) x10^3/uL Segmented Neutrophils 37 (36.-66.) % Lymphocytes (Manual) 60 H (24-44) % Monocytes (Manual) 3 (0.0-12.0) % Basophils # (0-0.4) x10^3/uL Platelet Estimate NORMAL (NORMAL) RBC Morphology NORMAL PT 12.0 (9.4-12.5) SECONDS INR 1.11 (0.8-3.0) APTT 23.5 L (25.1-36.5) SECONDS D-Dimer 2.15 H* (0.0-0.50) mg/L Puncture Site pCO2 (35-45) mmHg pO2 (75-100) mmHg Base Excess (-2.0-2.0) O2 Saturation (94-100) g/dF ABG pH (7.35-7.45) ABG HCO3 (22-28) ABG O2 Sat (Measured) (95-100) % Joel Test A-a Gradient a/A Ratio Hemoglobin Carboxyhemoglobin (0.0-6.9) % THgb Methemoglobin (1.4-1.5) % Potassium (3.5-5.1) Temperature C POC O2 Flow Rate % Sodium (135-145) mmol/L Chloride (98-107) mmol/L Carbon Dioxide (22-30) mmol/L Anion Gap (5-15) MEQ/L BUN (9-20) mg/dL Creatinine (0.66-1.25) mg/dL Estimated GFR ML/MIN Glucose (74-106) mg/dL Calcium (8.4-10.2) mg/dL Magnesium (1.6-2.3) mg/dL Total Bilirubin (0.2-1.3) mg/dL AST (17-59) U/L ALT (0-50) U/L Alkaline Phosphatase (38-126) U/L Troponin I (0.000-0.033) ng/mL Serum Total Protein (6.3-8.2) g/dL Albumin (3.5-5.0) g/dL Urine Color Dark Yellow (Yellow) Urine Appearance Turbid A (Clear) Urine pH 5.5 (4.6-8.0) Ur Specific [place] 1.025 (1.005-1.030) Urine Protein 100 A (Negative) Urine Glucose (UA) Negative (Negative) mg/dL Urine Ketones Trace A (Negative) Urine Blood Moderate A (Negative) Urine Nitrite Negative (Negative) Urine Bilirubin Negative (Negative) Urine Urobilinogen 1.0 A (0.2) mg/dL Ur Leukocyte Esterase Trace A (Negative) Urine Microscopic RBC 21-50 A (0-5) /HPF Urine Microscopic WBC 11-20 A (0-5) /HPF Ur Epithelial Cells None Seen (None Seen) /HPF Urine Bacteria Few A (None Seen) /HPF Slides for Path Review 02/10/24 02/10/24 Range/Units 23:45 23:35 WBC (4.0-10.5) x10^3/uL RBC (4.1-5.6) x10^6/uL Hgb (12.5-18.0) g/dL Hct (42-50) % MCV (78-100) fL MCH (26-32) pg MCHC (32-36) g/dL RDW (11.5-14.0) % Plt Count (150-450) x10^3/uL MPV (7.5-11.0) fL Gran % (36.0-66.0) % Immature Gran % (Auto) (0.00-0.4) % Nucleat RBC Rel Count (0.00-0.1) % Eos # (Auto) (0-0.5) x10^3/uL Immature Gran # (Auto) (0.00-0.03) x10^3u/L Absolute Lymphs (auto) (1.0-4.6) x10^3/uL Absolute Monos (auto) (0.0-1.3) x10^3/uL Absolute Nucleated RBC (0.00-0.01) x10^3u/L Lymphocytes % (24.0-44.0) % Monocytes % (0.0-12.0) % Eosinophils % (0.00-5.0) % Basophils % (0.0-0.4) % Absolute Granulocytes (1.4-6.9) x10^3/uL Segmented Neutrophils (36.-66.) % Lymphocytes (Manual) (24-44) % Monocytes (Manual) (0.0-12.0) % Basophils # (0-0.4) x10^3/uL Platelet Estimate (NORMAL) RBC Morphology PT (9.4-12.5) SECONDS INR (0.8-3.0) APTT (25.1-36.5) SECONDS D-Dimer (0.0-0.50) mg/L Puncture Site Pending pCO2 78 H* (35-45) mmHg pO2 168 H* (75-100) mmHg Base Excess -18.6 L (-2.0-2.0) O2 Saturation 98.1 (94-100) g/dF ABG pH 6.90 L* (7.35-7.45) ABG HCO3 15.3 L* (22-28) ABG O2 Sat (Measured) 100.0 (95-100) % Joel Test Pending A-a Gradient 448 a/A Ratio 0.27 Hemoglobin 13.2 Carboxyhemoglobin 1.3 (0.0-6.9) % THgb Methemoglobin 0.6 L (1.4-1.5) % Potassium 3.3 L 2.9 L* (3.5-5.1) Temperature 37.0 C POC O2 Flow Rate 100 % Sodium 143 (135-145) mmol/L Chloride 105 (98-107) mmol/L Carbon Dioxide 21 L (22-30) mmol/L Anion Gap 21.5 H (5-15) MEQ/L BUN 15 (9-20) mg/dL Creatinine 1.08 (0.66-1.25) mg/dL Estimated GFR 72.9 ML/MIN Glucose 249 H (74-106) mg/dL Calcium 9.0 (8.4-10.2) mg/dL Magnesium 2.4 H (1.6-2.3) mg/dL Total Bilirubin 0.80 (0.2-1.3) mg/dL AST 17 (17-59) U/L ALT 16 (0-50) U/L Alkaline Phosphatase 89 (38-126) U/L Troponin I 0.033 (0.000-0.033) ng/mL Serum Total Protein 6.7 (6.3-8.2) g/dL Albumin 3.8 (3.5-5.0) g/dL Urine Color (Yellow) Urine Appearance (Clear) Urine pH (4.6-8.0) Ur Specific [place] (1.005-1.030) Urine Protein (Negative) Urine Glucose (UA) (Negative) mg/dL Urine Ketones (Negative) Urine Blood (Negative) Urine Nitrite (Negative) Urine Bilirubin (Negative) Urine Urobilinogen (0.2) mg/dL Ur Leukocyte Esterase (Negative) Urine Microscopic RBC (0-5) /HPF Urine Microscopic WBC (0-5) /HPF Ur Epithelial Cells (None Seen) /HPF Urine Bacteria (None Seen) /HPF Slides for Path Review - Progress Progress: improved Air Movement: fair Blood Culture(s) Obtained: No Antibiotics given: No Counseled pt/family regarding: lab results, diagnosis, rad results <LUIS M DE LA CRUZ - Last Filed: 02/11/24 06:48> <MANINDER KOHLI - Last Filed: 02/11/24 14:05> - Progress Progress Note: 02/11/24 00:07 My medical decision making and the assignment of high complexity to this patien t's medical issue today is based on the patient's acute emergent presentation, review of the patient's past medical history, review the patient's medication list, review of patient drug allergy list, history present illness and physical findings on examination. This patient is in cardiac arrest. Intervention is code arrest protocol. See the separate sheet. I think this patient initially had respiratory distress, then respiratory arrest which then led to cardiac arrest. I interpreted the patient's laboratory data results. Patient has hyperglycemia he has a low potassium of 3.3. His initial troponin is normal with a level of 0.033 patient's hemoglobin was 13.7. I reviewed the blood gases pH is 6.9 a pCO2 of 78, pO2 of 168. The lactic acid is greater than 17 with a base excess of -18.6. We are providing the patient with an additional amp of bicarb. We are also starting him on Levophed. I had a discussion with the patient's brother. Apparently 3 siblings have medical power of photographic specialist. Initially, the brother stated that 1 sister had medical power of photographic specialist then he thought about it and apparently all 3 have medical power of photographic specialist. This will be discussed in determined by the paperwork that they have. After several rounds of code arrest interventions, spontaneous pulse returned. Unclear at this point what the patient's neurologic status is. 02/11/24 00:13 I interpreted the patient's postintubation chest x-ray. The ET tube is within the trachea above the nessa. There are bilateral infiltrates versus fluid versus both. 02/11/24 00:16 Repeat twelve-lead EKG was interpreted by me. It was performed on 02/11/2024 at 12:15 AM heart rate is 78. There is prolonged NE interval. The computer list probable anterior infarction, recent. 02/11/24 00:46 I had a long discussion with the family including the patient's medical power of photographic specialist. The patient has a niece who is a physician and she was also present during the discussion. I reviewed with them the patient's presenting picture, physical findings, workup results, and results of our management. I think the prognosis is poor in this patient. I told them I certainly cannot predict the future. They are very well aware of this patient's poor medical condition prior to this event. They have decided, including the medical power of photographic specialist, to make this patient DO NOT RESUSCITATE. We will follow the guidelines in weaning this patient off the ventilator and also call the organ donation system before the patient is weaned off the ventilator. The medical power of photographic specialist, the nurse and myself signed the DO NOT RESUSCITATE form. 02/11/24 06:23 This patient is now somewhat stabilized on normal saline IV fluid, Levophed drip, Versed drip. Organ donation network have evaluated this patient and the family at this time does want to donate organs. Therefore, we need to continue maintaining the patient's vital signs as close to normal as possible. There is still a need to determine the patient's brain activity. This requires specialized CT scan and/or special EEG with specialist able to interpret the test results. Therefore, in order to do that we need to transfer this patient to a facility that has the services. The organ donation network states that they do not have any particular facility they are aware of or use frequently in order to focus our communication attempts for transfer. The family is aware of this possibly prolonged process. They wish to start at [facility] ([facility]). We will continue to attempt to transfer this patient to other facilities if [facility] declines. The other difficult issue is to figure out how to transport to the accepting hospital. 02/11/24 06:48 As of now, we are waiting [facility] to call us back to determine if this is a possibility of transfer for determining level of brain activity. If they are unable to contact us back in the next 10 minutes I will be transferring care to Dr. Maninder Kohli at shift change. He will make final disposition. (LUIS M DE LA CRUZ) At approximately 9 AM patient began to bite his ET tube. We discontinue the Versed and initiated propofol and administered Dilaudid for pain control. Discussed with family and POA. Family requesting transfer to higher level of service for further evaluation and treatment. They prefer facility where [facility]'s radiologic technician has staff privileges. We are contacting [facility] currently for transfer 02/11/24 10:[address] Zain Clifford 2nd pressman at [facility] who is requesting CT head prior to transfer CT head ordered results pending. 02/11/24 11:58 CT negative for acute intracranial pathology. Senile brain with remote lacunar infarct. Dr. Clifford accepts transfer at 1:27 PM 02/11/24 13:27 Portions of this note were created with voice recognition technology. There may be grammatical, spelling, punctuation or sound alike errors 02/11/24 14:04 (MANINDER KOHLI) Medical Desision Making - Independent Historian Additional History obtained from: Family - External Record(s) Reviewed Records reviewed as a part of evaluation & management: Inpatient - Diagnostic Testing Diagnostic test were ordered, analyzed, and reviewed by me: Yes Radiological Interpretation: Interpreted by me - Risk of complications The pt has a high risk of morbidity or mortality based on: Decision not to resucitate <LUIS M DE LA CRUZ - Last Filed: 02/11/24 06:48> - Departure Departure Disposition: Transfer Critical Care Time: Yes <LUIS M DE LA CRUZ - Last Filed: 02/11/24 06:48> <MANINDER KOHLI - Last Filed: 02/11/24 14:05> - Departure Clinical Impression: Respiratory arrest before cardiac arrest, Cardiac arrest, Bilateral pulmonary infiltrates on chest x-ray, Pulmonary edema Condition: Critical Referrals: ISAI NORMAN, [Primary Care Provider] - Follow up/PCP as directed
[2024-02-11 00:15] LABS: Hemoglobin 13.7 g/dL (12.5-18.0); Mean Corpuscular Hemoglobin 33.2 pg (26-32); Mean Corpuscular Hgb Concent. 30.4 g/dL (32-36); Mean Platelet Volume 10.7 fL (7.5-11.0); Platelet Count 241 x10^3/uL (150-450); Red Blood Count 4.13 x10^6/uL (4.1-5.6); Red Cell Distribution Width 13.6 % (11.5-14.0); White Blood Count 11.8 x10^3/uL (4.0-10.5)
[2024-02-11 00:17] LABS: D-DIMER QUANTITATIVE 2.15 mg/L (0.0-0.50)
[2024-02-11 00:18] LABS: ALBUMIN 3.8 g/dL (3.5-5.0); ANION GAP 21.5 MEQ/L (5-15); BILIRUBIN,TOTAL 0.8 mg/dL (0.2-1.3); Creatinine 1 1.08 mg/dL (0.66-1.25); EST GLOMERULAR FILTRATION RATE 72.9 ML/MIN; MAGNESIUM 2.4 mg/dL (1.6-2.3); Potassium 3.3 mmol/L (3.5-5.1); TROPONIN 0.033 ng/mL (0.000-0.033); Total Protein 6.7 g/dL (6.3-8.2)
[2024-02-11] MEDS ORDERED: HEPARIN 5000 UNITS/0.5 ML (HIGH RISK MED) ONE (00:23)
[2024-02-11] MEDS: HEPARIN 5000 UNITS/0.5 ML (HIGH RISK MED) IV ONE (00:27)
[2024-02-11 00:34] LABS: Lymphocytes 60 % (24-44); Monocyte 3 % (0.0-12.0); Neutrophils 37 % (36.-66.); Total Cells Counted 100
[2024-02-11 00:35] LABS: Platelet Estimate NORMAL (NORMAL)
[2024-02-11 00:43] LABS: INR 1.11 (0.8-3.0); PTT 23.5 SECONDS (25.1-36.5)
[2024-02-11] MEDS ORDERED: Sodium Chloride 0.9% 100 ML ONE (01:01)
[2024-02-11] MEDS ORDERED: Magnesium Sulfate 1 GM/2 ML VIAL ONE (01:01)
[2024-02-11 01:19] LABS: Appearance Turbid (Clear); Bilirubin Negative (Negative); Blood Moderate (Negative); Glucose, Urine Negative (Negative); Ketones Trace (Negative); Leukocyte Esterase Trace (Negative); Nitrite Negative (Negative); Ph 5.5 (4.6-8.0); Protein,Urine Dip 100 (Negative); RBC 21-50 /HPF (0-5); Specific Gravity 1.025 (1.005-1.030)
[2024-02-11 01:20] LABS: Bacteria Few /HPF (None Seen); Epithelial Cells None Seen /HPF (None Seen)
[2024-02-11 01:27] LABS: A-aADO2 495; ABG HEMOGLOBIN 14.1; ABG POTASSIUM 3.6 (3.5-5.1); ARTERIAL BLD GAS O2 SATURATION 99.9 % (95-100); ARTERIAL BLOOD GAS BASE EXCESS -3.3 (-2.0-2.0); ARTERIAL BLOOD GAS FIO2 100 %; ARTERIAL BLOOD GAS PCO2 53 mmHg (35-45); ARTERIAL BLOOD GAS PO2 152 mmHg (75-100); ARTERIAL BLOOD GAS pH 7.27 (7.35-7.45); CARBOXYHEMOGLOBIN 1.3 % THgb (0.0-6.9); HCO3- 24.3 (22-28); HGB O2 SAT 97.4 g/dF (94-100); Methhemoglobin 1.2 % (1.4-1.5); paO2 pAO1 0.23
[2024-02-11 01:31] LABS: A-aADO2 448; ABG HEMOGLOBIN 13.2; ARTERIAL BLOOD GAS BASE EXCESS -18.6 (-2.0-2.0); ARTERIAL BLOOD GAS FIO2 100 %; ARTERIAL BLOOD GAS PO2 168 mmHg (75-100); CARBOXYHEMOGLOBIN 1.3 % THgb (0.0-6.9); HCO3- 15.3 (22-28); HGB O2 SAT 98.1 g/dF (94-100); Methhemoglobin 0.6 % (1.4-1.5); paO2 pAO1 0.27
[2024-02-11 01:32] LABS: ABG POTASSIUM 2.9 (3.5-5.1); ARTERIAL BLOOD GAS PCO2 78 mmHg (35-45)
[2024-02-11 05:31] LABS: Absolute Neutrophil Ct (ANC) 13.35 x10^3/uL (1.4-6.9); BASOPHIL % 0.1 % (0.0-0.4); Basophil (Absolute #) 0.02 x10^3/uL (0-0.4); Eosinophil % 0.1 % (0.00-5.0); Eosinophil (Absolute #) 0.01 x10^3/uL (0-0.5); Hematocrit 41.5 % (42-50); Hemoglobin 13.9 g/dL (12.5-18.0); IMMATURE GRAN # 0.11 x10^3u/L (0.00-0.03); IMMATURE GRAN % 0.7 % (0.00-0.4); Lymphocyte (Absolute #) 0.46 x10^3/uL (1.0-4.6); Lymphocytes % 3.1 % (24.0-44.0); Mean Cell Volume 100.7 fL (78-100); Mean Corpuscular Hemoglobin 33.7 pg (26-32); Mean Corpuscular Hgb Concent. 33.5 g/dL (32-36); Mean Platelet Volume 10.3 fL (7.5-11.0); Monocyte (Absolute #) 1.12 x10^3/uL (0.0-1.3); Monocytes % 7.4 % (0.0-12.0); Neutrophil % 88.6 % (36.0-66.0); Platelet Count 211 x10^3/uL (150-450); Red Blood Count 4.12 x10^6/uL (4.1-5.6); Red Cell Distribution Width 13.7 % (11.5-14.0); White Blood Count 15.1 x10^3/uL (4.0-10.5)
[2024-02-11 05:42] LABS: ALBUMIN 3.5 g/dL (3.5-5.0); ANION GAP 10.6 MEQ/L (5-15); BILIRUBIN,TOTAL 1.2 mg/dL (0.2-1.3); Creatinine 1 1.12 mg/dL (0.66-1.25); EST GLOMERULAR FILTRATION RATE 69.8 ML/MIN; MAGNESIUM 2.7 mg/dL (1.6-2.3); Potassium 3.6 mmol/L (3.5-5.1); Total Protein 6.3 g/dL (6.3-8.2)
[2024-02-11 05:47] LABS: Calcium 8.5 mg/dL (8.4-10.2)
[2024-02-11] MEDS ORDERED: Lasix 40 MG/4 ML ONE (06:37)
[2024-02-11] MEDS ORDERED: Sodium Chloride 0.9% 1000 ML 1,000 ML ONE (06:37)
[2024-02-11] MEDS ORDERED: ROCEPHIN 1 GM / 100 ML NaCl 1 GM/100 ML IVPB IV ONE (06:37)
[2024-02-11] MEDS: Lasix 40 MG/4 ML IV ONE (06:42)
[2024-02-11] MEDS: ROCEPHIN 1 GM / 100 ML NaCl 1 GM/100 ML IVPB IV ONE (06:42)
[2024-02-11] MEDS: Sodium Chloride 0.9% 1000 ML 1,000 ML IV SCH (06:53)
[2024-02-11 07:05] LABS: Slide Review 1 YES
--- NOTE | 2024-02-11 09:02 | XRAY ---
Indication: Endotracheal tube placement. Comparison: June 22, 2021. Portable chest demonstrates new endotracheal tube tip approximately 3.5 cm above nessa and new NG tube traversing chest with tip presumed in stomach. New diffuse bilateral hazy airspace disease without consolidation/large effusion. Again chronic right hemidiaphragm elevation. Heart not enlarged again with left pacemaker. Bony thorax intact again with osteopenia and degenerative changes.
[2024-02-11] MEDS ORDERED: Propofol 1000 mg/100 ml Bottle 100 ML IV ONE (09:12)
[2024-02-11] MEDS: Propofol 1000 mg/100 ml Bottle 100 ML IV PRN (09:24)
[2024-02-11] MEDS: DIPRIVAN 200 MG/20 ML IV ONE (09:37)
[2024-02-11] MEDS ORDERED: Hydromorphone 1 mg/ml Injection ONE ×2 (09:49→12:10)
[2024-02-11] MEDS: Hydromorphone 1 mg/ml Injection IV ONE ×2 (09:54→12:15)
[2024-02-11 10:55] LABS: A-aADO2 373; ABG HEMOGLOBIN 13.8; ABG POTASSIUM 3.9 (3.5-5.1); ABG SITE RIGHT RADIAL; ALLEN TEST OK? YES; ARTERIAL BLOOD GAS BASE EXCESS 6.2 (-2.0-2.0); ARTERIAL BLOOD GAS FIO2 100 %; ARTERIAL BLOOD GAS PCO2 37 mmHg (35-45); ARTERIAL BLOOD GAS PO2 294 mmHg (75-100); ARTERIAL BLOOD GAS pH 7.51 (7.35-7.45); CARBOXYHEMOGLOBIN 1.1 % THgb (0.0-6.9); HCO3- 29.5 (22-28); HGB O2 SAT 97.5 g/dF (94-100); Methhemoglobin 1.4 % (1.4-1.5); paO2 pAO1 0.44
[2024-02-11 11:28] VITALS: RESP 16; TEMP 97.6
--- NOTE | 2024-02-11 12:46 | XRAY ---
Indication: Altered mental status. Stroke. Multiple contiguous axial images obtained through the head without contrast. Comparison: December 03, 2023 Study slightly degraded by motion artifact and beam artifact from manual fixation. Grossly stable age-appropriate global atrophy, moderate periventricular degenerative micro-ischemia bilaterally, remote lacunar infarct brain stem, and remote lacunar infarct right internal capsule. No gross acute intracranial hemorrhage, abnormal extra-axial fluid collection, or mass effect. Fourth ventricle is midline without hydrocephalus. Bony calvarium intact. Visualized paranasal sinuses and mastoid air cells are clear. New incompletely visualized orogastric tube and endotracheal tube. Impression: 1. Motion and beam artifact. 2. Grossly stable nonacute senile brain with remote lacunar infarcts.
[2024-02-11 13:01] VITALS: O2SAT 98
[2024-02-11 13:43] VITALS: PULSE 61
[2024-02-11 14:10] VITALS: BP 110/68
[2024-02-11 17:25] LABS: ABG SITE RIGHT RADIAL; ALLEN TEST OK? YES
== END 2024-02-11 13:55 | disposition short-term general hospital (02) ==
LOC: ED 23:49
DX: I46.9 Cardiac arrest, cause unspecified (principal); R91.8 Other nonspecific abnormal finding of lung field; J81.1 Chronic pulmonary edema; I50.9 Heart failure, unspecified; Z79.01 Long term (current) use of anticoagulants; Z79.899 Other long term (current) drug therapy
CPT/HCPCS: 31500; 36000; 36415; 36600; 51702; 70450; 71045; 80053; 81001; 82375; 82803; 83735; 84484; 85025; 85379; 85610; 85730; 87086; 92950; 93005; 94002; 96365; 96374; 96375; 96376; 99285; 99291; 99292; J0171; J0282; J0696; J1170; J1644; J1940; J2250; J2310; J2704; J3475